=== PATIENT | female | born 1985 | race African-American/Black ===

== ENCOUNTER 2017-08-05 06:13 | Emergency (ER) | payer OTHER ==
[~2017-08-05] VITALS: Ht 167.6 cm; Wt 63.5 kg
[~2017-08-05 06:13] MED LIST: FIORICET 50-321 EACH PO; IRON159 MG; KEFLEX500 MG PO; LIDOCAINE VISC100 ML PO; NOHOMEMEDICATIONS; NORCO 5-325 TA1 EACH PO; PRENATAL; ZOFRAN ODT4 MG PO
[2017-08-05 06:44] LABS: HEMOGLOBIN 13.2 gm/dL (12.0-15.0); MCH 33.4 pg (26.0-34.0); MCHC 33.7 g/dL (28.0-37.0); MCV 99.1 fL (80.0-100.0); RBC 3.93 mil/uL (4.20-5.00); RDW 12.7 % (10.5-14.5); WBC 4.3 thou/uL (4.0-11.0)
[2017-08-05 06:51] LABS: CALCIUM 8.5 mg/dL (8.5-10.1); CREATININE 0.8 mg/dL (0.6-1.0); POTASSIUM 4.2 mmol/L (3.5-5.1)
[2017-08-05] MEDS ORDERED: NORTRIPTYLINE H10 M2 PO (06:55)
[2017-08-05] MEDS ORDERED: [UNRECOGNIZED DRUG - OTHER] PO (06:55)
== END 2017-08-05 08:08 | disposition home or self-care (01) ==
LOC: ER 06:13
PROVIDERS: Emergency Medicine
DX: R51 Headache (principal); J45.909 Unspecified asthma, uncomplicated; F17.210 Nicotine dependence, cigarettes, uncomplicated